=== PATIENT | female | born 1975 | race Caucasian/White ===

== ENCOUNTER 2023-12-22 21:19 | Emergency (ER) | payer BC, SELFPAY ==
[2023-12-22 21:25] VITALS: BP 154/105
--- NOTE | 2023-12-22 22:41 | ED.GENMED ---
History of Present Illness
General
Chief Complaint: Heart Rate Problem
Source: patient
Exam Limitations: none
Time Seen by Provider: 12/22/23 22:02
Travel History
Have you had any contact with someone who has COVID-19?: No
Do you have any symptoms of coronavirus? Fever > 100 degrees, chills, cough, shortness of breath, sore throat, loss of taste or smell, muscle aches, or headache?: No
History of Present Illness
History of Present Illness:
This is a 48 year old female that comes in with c/o increased heart rate. States that she has taken a shower and went up stairs and her heart rate went up. States that she feels it was 160. States that she normally is between 90-107. States that her
called EMS. State that she normally drink alcohol daily but she stopped drinking on Tuesday. States that she is not hallucinating or having any tremors. States that she also drank a lot of caffeine today. Denies any fever, chills, chest
pain, SOB, abd pain, nausea, vomiting, diarrhea, headache, dizziness, urinary burning.
Past History
Past History
ED Past Medical History: Psychiatric (Anxiety, depression, Bipolar ( denies this diagnosis)); Negative Asthma, HTN, Hypercholesterolemia or NIDDM
ED Past Surgical History: None
Social History
Tobacco: Smoker
Alcohol: Daily (all day every day, [place] [place], )
Personal: (but has a boyfriend)
Living: with family
Review of Systems
Review of Systems
All Other Systems: ROS reviewed and negative except as documented in HPI and ROS
Constitutional: Reports no symptoms; Denies fever or chills
EENT: Reports no symptoms
Respiratory: Reports no symptoms; Denies cough or trouble breathing
Cardiac: Reports no symptoms; Denies chest pain
ABD/GI: Reports no symptoms; Denies abdominal pain, nausea, vomiting or diarrhea
: Reports no symptoms; Denies dysuria, frequency or urgency
Musculoskeletal: Reports no symptoms
Skin: Reports no symptoms
Neurological: Reports no symptoms; Denies dizzy or headache
Psychiatric: Reports no symptoms
Phy Exam
General Physical Exam
General Presentation: no apparent distress
General age: appears stated age
General Skin: warm and dry
General Habitus: normal
General Mental: alert
General Hydration: appears well hydrated
ENT Exam
ENT Exam: TM's normal, pharynx normal and neck supple
Eye Exam
Eye Exam: EOMI
Cardiovascular Exam
Cardiovascular Exam: no edema, no murmur, normal peripheral pulses and tachycardia
Pulmonary Exam
Pulmonary Exam: lungs clear, no respiratory distress, no rales, chest non tender, no crackles, no rhonchi, no wheezing and no cough
Gastrointestinal Exam
Gastrointestinal Exam: normal bowel sounds, non tender, soft, no organomegaly, no pulsatile mass and non distended
Musculoskeletal Exam
Musculoskeletal Exam: full ROM and no edema
Skin Exam
Skin Exam: normal color, warm/dry, no rash and no petechia
Psychiatric Exam
Psychiatric Exam: normal mood/affect
Course
Orders/Labs/Results
Orders:
Orders
12/22/23 21:23
EKG [Electrocardiogram (*1)] Urgent
Reason for Study: Bradycardia / Tachycardia
12/22/23 21:24
EKG- Treatment ONCE
12/22/23 22:41
0.9% Sodium Chloride 1000 ml [Nss] 1,000 ml IV BOLUS
Test Result ONCE
12/22/23 22:56
Complete Blood Count/With Diff Urgent
Comprehensive Metabolic Panel Urgent
HCG, Serum Qualitative Screen Urgent
TSH Reflex To Free T4 Urgent
Abnormal Lab Results
12/22/23
22:56
MCH 33.7 H pg
(27.0-31.0)
Absolute Monos (auto) 0.7 H 10^3/uL
(0.1-0.6)
Chloride 108 H mmol/L
(98-107)
BUN 6 L mg/dl
(7-17)
Creatinine 0.4 L mg/dL
(0.6-1.0)
Glucose 109 H mg/dl
(70-99)
12/22/23 22:56
12/22/23 22:56
Glucose nonfasting. HCG negative , TSH 0.88
Vital Signs
Initial and Last Documented VS:
Initial Vital Signs
Temp Resp BP Pulse Ox
98.2 F 18 154/105 100
12/22/23 21:25 12/22/23 21:25 12/22/23 21:25 12/22/23 21:25
Last Documented Vital Signs
Temp Pulse Resp BP Pulse Ox
98.2 F 93 18 118/93 96
12/22/23 21:25 12/22/23 23:15 12/22/23 23:15 12/22/23 23:00 12/22/23 23:00
MDM/Problems Addressed
Differential Diagnosis Includes:
Tachycardia, Anxiety,
MDM/Problems Addressed:
This is a 48 year old female that comes in with c/o increased heart rate. States that she took a shower and when up stairs and her heart rate went up to 160. Staes that she drank a lot of caffeine today and stopped drinking alcohol on Tuesday.
Will check labs, give IV fluids and monitor patient while here.
Back into see patient. Patient heart rate down to 97-105. States that she is ready to go home. Explained to patient that her blood work is normal. Thyroid studies are pending. Encouraged patient to decrease her caffeine intake and increase her water
intake to 8-8oz glasses daily. Patient to follow up with the family doctor for recheck. Return with any concerns.
Chronic conditions affecting care: Psychiatric illness (Anxiety)
Acute Exacerbation and/or Progression of Chronic Illness: Psychiatric illness (Anxiety)
*Pulse Oximetry
Patient hypoxic: no
*EKG
Interpreted by ED Provider?: Yes
Heart Rate: 101
Rate: tachycardiac
Rhythm: sinus tachycardia
Penn: normal axis
Interval: normal interval
QRS Pattern: normal QRS
Ischemia: no ischemia
*Blade Balancer Interpretation
Rate: tachycardiac
Heart Rate: 110
Rhythm: sinus tachycardia
*Critical Care Note
Total Time (30-74mins, 75-104mins- exclusive of procedures): Not Applicable
ED Attending Note
-
Portions of this chart may have been created with voice recognition software.� Occasional wrong word or��sound alike� substitutions may have occurred due to the inherent limitations of voice recognition software.
Discharge Plan
Departure
Patient Disposition: Home (Routine Discharge)
Date of Disposition: 12/22/23
Time of Disposition: 23:48
Patient with high blood pressure during this ER visit?: No
Condition: Good
Covid-19: Not Applicable
Discharge Problem:
Tachycardia
Instructions: Tachycardia (DC)
Prescriptions:
No Action
lamotrigine 150 mg Tablet
150 mg PO BID
clonazepam [Klonopin] 0.5 mg Tablet
0.5 mg PO BID
Referrals:
Garry Pardo, [Family Provider] - Call in 1-3 days for appt
Activity Restrictions/Additional Instructions:
As discussed, your blood work is normal. Please decrease your caffeine intake as this will increase your heart rate. Please increase your water intake to 8-8oz glasses daily. Follow up with the family doctor for recheck. IF YOU HAVE ANY OTHER
CONCERNS PLEASE RETURN TO THE EMERGENCY ROOM.
Interventions
Interventions:
*Risk Screen - Suicide Last Done: 12/22/23 23:00
*Neglect/Abuse Screening Last Done: 12/22/23 23:00
ED- Fall Risk Assessment Last Done: 12/22/23 23:00
*ED COVID-19 Vaccine History Last Done: 12/22/23 21:25
ED- Cardiac Assessment Last Done: 12/22/23 23:00
ED- Pulmonary Assessment Last Done: 12/22/23 23:00
[2023-12-22] MEDS: NSS 1000 IV (22:56)
[2023-12-22 22:58] VITALS: BP 120/93
[2023-12-22 23:00] VITALS: BP 118/93
[2023-12-22 23:04] LABS: % Basophils 0.6 % (0-2); % Eosinophils 3.1 % (0-6); % Immature Granulocytes 0.4 % (0-0.5); % Lymphocytes 22.3 % (20.5-51.1); % Monocytes 9.2 % (1.7-9.3); % Neutrophils 64.4 % (42.2-75.2); Absolute Basophils 0.1 10^3/uL (0-0.2); Absolute Eosinophils 0.2 10^3/uL (0-0.7); Absolute Lymphocytes 1.8 10^3/uL (1.2-3.4); Absolute Monocytes 0.7 10^3/uL (0.1-0.6); Hemoglobin 14.6 g/dL (12.0-16.0); Mean Corp Hgb Conc. 36.5 g/dL (33.0-37.0); Mean Corpuscular Hgb 33.7 pg (27.0-31.0); Mean Corpuscular Volume 92.4 fL (81.0-99.0); Mean Platelet Volume 9.3 fL (7.4-10.4); Nucleated Red Blood Cells % 0 %; Platelet Count 276 10^3/uL (130-400); Red Blood Cell Count 4.33 10^6/uL (4.20-5.40); Red Cell Dist. Width 11.6 % (11.5-14.5); White Blood Cell Count 7.8 10^3/uL (4.8-10.8)
[2023-12-22 23:18] LABS: HCG, Serum Qualitative Screen Negative
[2023-12-22 23:20] VITALS: BMI 28.5
[2023-12-22 23:21] LABS: ALT (SGPT) 23 U/L (0-35); AST (SGOT) 28 U/L (14-36); Albumin 4.1 g/dl (3.5-5.0); Alkaline Phosphatase 68 U/L (38-126); Blood Urea Nitrogen 6 mg/dl (7-17); Calcium 9.3 mg/dl (8.4-10.2); Carbon Dioxide 24 mmol/L (22-30); Chloride 108 mmol/L (98-107); Estimated Creatinine Clearance > 125 ml/min; Glucose 109 mg/dl (70-99); Sodium 136 mmol/L (135-145); Total Bilirubin 0.4 mg/dl (0.2-1.3); Total Protein 6.8 g/dl (6.3-8.2); eGFR > 60.00
[2023-12-22 23:55] LABS: TSH Reflex To Free T4 0.88 uIU/ml (0.47-4.68)
[2023-12-23] VITALS: BP 112/81
== END 2023-12-23 00:18 | disposition home or self-care (01) ==
LOC: EMR 21:19
PROVIDERS: Clinical Nurse Specialist Family Health; EMERGENCY PHYSICIAN Emergency Medicine; FAMILY PHYSICIAN Family Medicine
DX: R00.0 Tachycardia, unspecified (principal); F31.9 Bipolar disorder, unspecified; F41.9 Anxiety disorder, unspecified; F32.A Depression, unspecified
CPT/HCPCS: 99284; 96360; 80053; 84443; 84703; 85025; 93005

== ENCOUNTER 2024-07-06 16:26 | Emergency (ER) | payer BC, SELFPAY ==
[2024-07-06] VITALS (7 sets, daily range): BP systolic 112–125; BP diastolic 83–91; BMI 27.3
[2024-07-06 16:54] LABS: % Basophils 0.8 % (0-2); % Immature Granulocytes 0.3 % (0-0.5); % Lymphocytes 18.4 % (20.5-51.1); % Monocytes 9.4 % (1.7-9.3); % Neutrophils 70.1 % (42.2-75.2); Absolute Basophils 0.1 10^3/uL (0-0.2); Absolute Eosinophils 0.1 10^3/uL (0-0.7); Absolute Lymphocytes 1.1 10^3/uL (1.2-3.4); Absolute Monocytes 0.6 10^3/uL (0.1-0.6); Absolute Neutrophils 4.2 10^3/uL (1.4-6.5); Hematocrit 40.3 % (37.0-47.0); Hemoglobin 14.9 g/dL (12.0-16.0); Mean Corpuscular Hgb 33.3 pg (27.0-31.0); Mean Corpuscular Volume 90.2 fL (81.0-99.0); Mean Platelet Volume 9.8 fL (7.4-10.4); Nucleated Red Blood Cells % 0 %; Platelet Count 247 10^3/uL (130-400); Red Blood Cell Count 4.47 10^6/uL (4.20-5.40); Red Cell Dist. Width 11.6 % (11.5-14.5); White Blood Cell Count 5.9 10^3/uL (4.8-10.8)
[2024-07-06 17:05] LABS: HCG, Serum Qualitative Screen Negative
[2024-07-06 17:07] LABS: D-Dimer 0.31 ug/mlFEU (0.00-0.50)
[2024-07-06 17:11] LABS: ALT (SGPT) 38 U/L (0-35); AST (SGOT) 35 U/L (14-36); Albumin 4.5 g/dl (3.5-5.0); Alkaline Phosphatase 74 U/L (38-126); Blood Urea Nitrogen 10 mg/dl (7-17); Calcium 9.9 mg/dl (8.4-10.2); Carbon Dioxide 16 mmol/L (22-30); Chloride 108 mmol/L (98-107); Estimated Creatinine Clearance 114 ml/min; Glucose 82 mg/dl (70-99); Magnesium 1.8 mg/dl (1.6-2.3); Potassium 3.4 mmol/L (3.5-5.1); Sodium 140 mmol/L (135-145); Total Bilirubin 0.8 mg/dl (0.2-1.3); Total Protein 6.8 g/dl (6.3-8.2); eGFR > 60.00
[2024-07-06 17:20] LABS: Troponin I 0.016 ng/ml
[2024-07-06] MEDS: NSS 1000 IV (18:01)
[2024-07-06 18:10] LABS: Free T4 1.48 ng/dl (0.78-2.19)
--- NOTE | 2024-07-06 20:12 | ED.GENMED ---
History of Present Illness
General
Chief Complaint: Heart Rate Problem
Source: patient
Exam Limitations: none
Time Seen by Provider: 07/06/24 16:42
Nursing documentation reviewed up to this point in time: agreed with
History of Present Illness
History of Present Illness:
Patient presents to ED secondary to sudden onset of palpitations along with lightheadedness, shortly prior to arrival. Patient has had number of similar symptoms in the past, including evaluation the ED in December 2023. At the time evaluation ED,
patient states that her symptoms have improved. Denies chest pain or shortness of breath. Denies nausea or vomiting. Denies passing out. Patient states that she drinks 24 ounce cup of coffee daily, but also drinks alcohol daily. Denies recent
illness. Denies recent travel. There is no family history of heart disease.
Past History
Past History
ED Past Medical History: Psychiatric (Anxiety, depression, Bipolar ( denies this diagnosis)); Negative Asthma, HTN, Hypercholesterolemia or NIDDM
ED Past Surgical History: None
Social History
Tobacco: Smoker
Alcohol: Daily (all day every day, [place]ol[place], )
Personal: (but has a boyfriend)
Living: with family
Review of Systems
Review of Systems
Allergies reviewed?: Yes
All Other Systems: ROS reviewed and negative except as documented in HPI and ROS
Constitutional: Reports no symptoms
EENT: Reports no symptoms
Respiratory: Reports no symptoms
Cardiac: Reports palpitations; Denies chest pain
ABD/GI: Reports no symptoms
Musculoskeletal: Reports no symptoms
Skin: Reports no symptoms
Neurological: Reports dizzy; Denies headache or weakness
Phy Exam
Physical Exam
Physical Exam:
Physical Exam
General: no apparent distress, not acutely ill. afebrile
Head: nc/at. eomi
Neck: supple. no meningeal signs.
Heart: tachycardic, no murmur. equal radial pulses.
Lungs: no acute respiratory distress. clear bilaterally
Abdomen: normal bowel sounds. not tender.
Neuro: alert and oriented. no focal neurological deficits
Skin: no rash
Psychiatric: well kept. interactive and cooperative
Extremities: no edema. no calf tenderness.
Course
Orders/Labs/Results
Orders:
Orders
07/06/24 16:27
EKG [Electrocardiogram (*1)] Urgent
Reason for Study: Bradycardia / Tachycardia
07/06/24 16:28
EKG- Treatment ONCE
07/06/24 16:43
Add On- LAB Urgent
Tests Added?: magnesium
07/06/24 16:47
Complete Blood Count/With Diff Urgent
Comprehensive Metabolic Panel Urgent
D-Dimer Urgent
Free T4 Urgent
HCG, Serum Qualitative Screen Urgent
Comment: SERUM HCG QUALITATIVE ADDED ON BY FLOOR 4:50PM 07-06-24
Magnesium Urgent
Comment: MAG ADDED ON BY FLOOR 4:45PM 07-06-24
TSH Reflex To Free T4 Urgent
Troponin I Urgent
07/06/24 16:53
Add On- LAB Urgent
Comments:: serum hcg qualitative
Tests Added?: serum hcg qualitative
07/06/24 17:43
0.9% Sodium Chloride 1000 ml [Nss] 1,000 ml IV BOLUS
Abnormal Lab Results
07/06/24
16:47
MCH 33.3 H pg
(27.0-31.0)
Absolute Lymphs (auto) 1.1 L 10^3/uL
(1.2-3.4)
Lymphocytes % 18.4 L %
(20.5-51.1)
Monocytes % 9.4 H %
(1.7-9.3)
Potassium 3.4 L mmol/L
(3.5-5.1)
Chloride 108 H mmol/L
(98-107)
Carbon Dioxide 16 L mmol/L
(22-30)
Creatinine 0.5 L mg/dL
(0.6-1.0)
ALT 38 H U/L
(0-35)
TSH (Reflex) 0.30 L uIU/ml
(0.47-4.68)
07/06/24 16:47
07/06/24 16:47
Vital Signs
Initial and Last Documented VS:
Initial Vital Signs
Temp Pulse Resp BP Pulse Ox
98.4 F 108 20 125/91 97
07/06/24 16:31 07/06/24 16:31 07/06/24 16:31 07/06/24 16:31 07/06/24 16:31
Last Documented Vital Signs
Temp Pulse Resp BP Pulse Ox
98.4 F 89 20 115/86 99
07/06/24 16:31 07/06/24 19:45 07/06/24 16:31 07/06/24 19:30 07/06/24 20:14
MDM/Problems Addressed
MDM/Problems Addressed:
History and exam consistent with nonspecific SVT versus sinus tachycardia. Fortunately, patient's symptoms have resolved spontaneously without acute treatment. Discussed with on-call cardiology, Dr. Drummond, regarding treatment options. Patient
will be discharged home with recommendation to discontinue use of alcohol, along with increased fluid intake. In addition, patient will be given prescription for metoprolol 25 mg, to be taken in the future with similar palpitations, along with
outpatient cardiology consultation.
Patient expresses understanding at time of discharge, to the care of her family.
*Critical Care Note
Total Time (30-74mins, 75-104mins- exclusive of procedures): Not Applicable
ED Attending Note
-
Portions of this chart may have been created with voice recognition software.� Occasional wrong word or��sound alike� substitutions may have occurred due to the inherent limitations of voice recognition software.
Discharge Plan
Departure
Patient Disposition: Home (Routine Discharge)
Date of Disposition: 07/06/24
Time of Disposition: 20:12
Patient with high blood pressure during this ER visit?: Yes
Discharge Problem:
Heart palpitations
Instructions: Palpitations (DC)
Prescriptions:
New
metoprolol tartrate 25 mg tablet
25 mg PO DAILY PRN (Reason: palpitations) Qty: 14 0RF
Referrals:
Dionisio Drummond MD [Active] -
UNKNOWN - PT DOES,NOT KNOW [Family Provider] -
Activity Restrictions/Additional Instructions:
As discussed, please follow-up with your primary care physician and/or referred wildlife biology technician for further evaluation and treatment. In the meantime, please reduce caffeine consumption, as well as alcohol intake. Your prescription has been sent
electronically to [facility] pharmacy in [place], which you can take, as needed, with future episodes of palpitations.
Interventions
Interventions:
*Risk Screen - Suicide Last Done: 07/06/24 16:38
*General Assessment Last Done: 07/06/24 16:38
*Neglect/Abuse Screening Last Done: 07/06/24 16:38
ED- Fall Risk Assessment Last Done: 07/06/24 20:22
*ED COVID-19 Vaccine History Last Done: 07/06/24 16:38
*Nursing Disposition Last Done: 07/06/24 20:22
ED- Cardiac Assessment Last Done: 07/06/24 16:59
ED- Pulmonary Assessment Last Done: 07/06/24 16:59
Discharge Date and Time
Discharge Date/Time: 07/06/24 20:22
Print Language: SYRIAC
--- NOTE | 2024-07-06 20:25 | EDRN ---
Called patient and gave her phone number for Dr Drummond
== END 2024-07-06 20:22 | disposition home or self-care (01) ==
LOC: EMR 16:26
PROVIDERS: EMERGENCY PHYSICIAN Emergency Medicine
DX: R00.2 Palpitations (principal); R42 Dizziness and giddiness; F41.9 Anxiety disorder, unspecified; F32.A Depression, unspecified; F31.9 Bipolar disorder, unspecified; F17.200 Nicotine dependence, unspecified, uncomplicated
CPT/HCPCS: 99284; 96360; 80053; 83735; 84439; 84443; 84484; 84703; 85025; 85379; 93005